=== PATIENT | female | born 1935 | race Caucasian/White ===

== ENCOUNTER 2019-03-03 08:06 | Emergency (ER) | payer MEDICARE, OTHER ==
[~2019-03-03] VITALS: Ht 152.4 cm; Wt 68.5 kg
[2019-03-03] MEDS ORDERED: KETOROLAC TROMETHAMINE INJ 30 MG/ML VIAL IV ONE (08:30)
[2019-03-03] MEDS ORDERED: IV NS 0.9% 500 ML BAG IV ONE (08:30)
[2019-03-03] MEDS ORDERED: KETOROLAC TROMETHAMINE 15 MG/ML VIAL ONE (08:33)
[2019-03-03 08:44] LABS: BASOPHILS # (AUTO) 0.1 /CMM (0.0-0.2); BASOPHILS % (AUTO) 0.8 % (0.0-2.0); HEMATOCRIT 42 % (33-45); HEMOGLOBIN 13.9 g/dL (11.5-14.8); LYMPHOCYTES # (AUTO) 1.2 /CMM (0.8-4.8); LYMPHOCYTES % (AUTO) 11.4 % (20.0-44.0); MEAN CORPUSCULAR HGB CONC 33 g/dl (31.0-36.0); MEAN CORPUSCULAR VOLUME 88 fL (82-100); MONOCYTES # (AUTO) 0.9 /CMM (0.1-1.30); MONOCYTES % (AUTO) 8.2 % (2.0-12.0); NEUTROPHILS # (AUTO) 8.1 /CMM (1.8-8.9); NEUTROPHILS % (AUTO) 78.6 % (43.0-81.0); PLATELET COUNT (AUTO) 321 /CMM (150-450); RED BLOOD CELL COUNT(AUTO) 4.75 MIL/uL (4.0-5.2); WHITE BLOOD COUNT (AUTO) 10.4 K/uL (4.3-11.0)
--- NOTE | 2019-03-03 08:48 | NUR ---
0815: BIBRA from A/L, per report, unwitnessed fall. Noted with facial and BUE multiple bruises and skin tears. 0830: Started RW PIV g20, started on 5600mL NS bolus and Ketorolac given. 0848: Went to CT.
[2019-03-03 08:53] LABS: CALCIUM, SERUM 9.1 mg/dL (8.5-10.1); CARBON DIOXIDE 29 mmol/L (21-32); CHLORIDE 106 mmol/L (98-107); CREATININE 0.5 mg/dL (0.6-1.3); GLUCOSE 106 mg/dL (74-106); LIPASE 115 U/L (73-393); POTASSIUM 3.9 mmol/L (3.5-5.1); SODIUM SERUM 143 mmol/L (136-145); UREA NITROGEN, BLOOD 15 mg/dL (7-18)
--- NOTE | 2019-03-03 09:15 | NUR ---
Back to bed [address]
[2019-03-03] MEDS ORDERED: LIDO30CR TP (09:25)
[2019-03-03] MEDS ORDERED: TRIA80OI TP (09:25)
[2019-03-03] MEDS ORDERED: GUAI5SYR PO (09:25)
[2019-03-03] MEDS ORDERED: DOCU-141 PO (09:25)
[2019-03-03] MEDS ORDERED: TRAM50TA2 PO (09:25)
[2019-03-03] MEDS ORDERED: CARB-94 PO (09:25)
[2019-03-03] MEDS ORDERED: ISOS30TA6 PO (09:25)
[2019-03-03] MEDS ORDERED: DULO60CA45 PO (09:25)
[2019-03-03] MEDS ORDERED: ACET-868 PO (09:25)
[2019-03-03] MEDS ORDERED: MELO-107 PO (09:25)
[2019-03-03] MEDS ORDERED: ATOR10TA PO (09:25)
[2019-03-03] MEDS ORDERED: QUET25TA PO (09:25)
[2019-03-03] MEDS ORDERED: QUET50TA PO (09:25)
[2019-03-03] MEDS ORDERED: POLY15DR40 EACHEYE (09:25)
[2019-03-03] MEDS ORDERED: DICL100G26 TP (09:25)
[2019-03-03] MEDS ORDERED: TEMA15CA PO (09:25)
[2019-03-03] MEDS ORDERED: ASPI-1152 PO (09:25)
[2019-03-03] MEDS ORDERED: OMEP40CA37 PO (09:25)
[2019-03-03] MEDS ORDERED: NITR0.4T48 SL (09:25)
[2019-03-03] MEDS ORDERED: MECL-102 PO (09:25)
[2019-03-03] MEDS ORDERED: MAGN400O6 PO (09:25)
[2019-03-03 09:48] LABS: APPEARANCE,URINE Cloudy (CLEAR); BILIRUBIN,URINE SMALL (NEGATIVE); BLOOD, URINE Trace-intact Ery/uL (NEGATIVE); COLOR,URINE Yellow (YELLOW); KETONES,URINE Trace (NEGATIVE); LEUKOCYTE ESTERASE ,URINE Small (NEGATIVE); NITRITE, URINE Positive (NEGATIVE); PROTEIN,URINE 30 mg/dl (NEGATIVE); UGLUCOSE Negative (NEGATIVE); UROBILINOGEN,URINE 0.2 EU/dL (0.2)
[2019-03-03 10:24] LABS: BACTERIA,URINE 3+ /HPF (None Seen); SQUAMOUS EPITHELIAL CELL,UR Few /HPF (None Seen)
--- NOTE | 2019-03-03 10:46 | NUR ---
called [facility] [phone] [facility]
--- NOTE | 2019-03-03 11:36 | NUR ---
Face sheet and ER noted with labs faxed to [facility] [phone]
--- NOTE | 2019-03-03 12:53 | NUR ---
1240: Jennifer called back [phone], given bed number room 4419-1 1250: Report given to Lakshmi [phone] ext [phone], will call [facility] for transpo at this time.
--- NOTE | 2019-03-03 13:00 | NUR ---
DO ETA AT 1400 GOING TO [facility]. TRIP# [id number]. PRIMARY RN AWARE.
[2019-03-03] MEDS ORDERED: ONDANSETRON HCL/PF 4 MG/2 ML VIAL ONE (13:01)
[2019-03-03] MEDS ORDERED: MORPHINE SULFATE INJ 2 MG/ML DISP.SYRIN ONE (13:02)
--- NOTE | 2019-03-03 14:02 | NUR ---
Called Danelle(daughter) [phone], and made aware re: the transfer. [facility] personnels came and report given. Patient with neck collar on. PIV intct.
[2019-03-03 14:05] VITALS: BP 145/85
== END 2019-03-03 14:00 | disposition short-term general hospital (02) ==
LOC: ER 08:08
DX: S12.190A Other displaced fracture of second cervical vertebra, initial encounter for closed fracture (principal); S05.12XA Contusion of eyeball and orbital tissues, left eye, initial encounter; K21.9 Gastro-esophageal reflux disease without esophagitis; G20 Parkinson's disease; F02.80 Dementia in other diseases classified elsewhere, unspecified severity, without behavioral disturbance, psychotic disturbance, mood disturbance, and anxiety; Z79.82 Long term (current) use of aspirin; W18.39XA Other fall on same level, initial encounter; Y93.89 Activity, other specified; Y92.89 Other specified places as the place of occurrence of the external cause; Y99.8 Other external cause status
CPT/HCPCS: 36415; 70450; 70486; 72125; 72170; 80048; 81001; 83690; 84484; 85025; 87077; 87086; 93005; 96374; 99291; J1885; J2270; J2405; J7040; L0172; 81000-TC

== ENCOUNTER 2020-04-10 03:36 | Inpatient (IN) | payer MEDICARE, OTHER ==
[~2020-04-10] VITALS: Ht 162.6 cm; Wt 53.1 kg
[2020-04-10] VITALS (30 sets, daily range): BP systolic 77–136; BP diastolic 43–81
[~2020-04-10 03:36] MED LIST: ACET-868 PO; ASPI-1152 PO; ATOR10TA GT; CARB-94 PO; DICL100G26 TP; DOCU-141 PO; DULO60CA45 GT; GUAI5SYR PO; ISOS30TA6 PO; LIDO30CR TP; MAGN400O6 PO; MECL-159 PO; MELO-107 PO; NITR0.4T48 SL; OMEP40CA13 PO; POLY15DR40 EACHEYE; QUET25TA PO; QUET50TA PO; TEMA15CA PO; TRAM50TA2 PO; TRIA80OI TP
--- NOTE | 2020-04-10 03:48 | NUR ---
PATIENT CAME TO ER BED 5 FROM [facility] BIB RA C/O SOB. PER [facility]S REPORT, PATIENT'S O2 SATURATION WAS 83% BECAUSE PATIENT'S OXYGEN MASK WAS ON PT'S FOREHEAD WHEN THE LAFD PLACED THE OXYGEN MASK BACK PROPERLY RESULTING IN A 95% O2. PATIENT IS AWAKE. BILATERAL UPPER EXTREMITIES ARE CONTRACTED. BREATHING EVENLY AND UNLABORED ON 15L OF NON-REBREATHER MASK. CONNECTED TO CARDIAC MACHINE.
[2020-04-10] MEDS ORDERED: PIPERACILLIN /TAZOBACTAM 3.375 G in IV D5W 50 ML IV ONE (04:00)
[2020-04-10] MEDS ORDERED: VANCOMYCIN HCL 1 GM in IV D5W 260 ML IV ONE (04:00)
[2020-04-10] MEDS ORDERED: IV NS 0.9% 500 ML BAG IV ONE (04:00)
[2020-04-10] MEDS ORDERED: PIPERACILLIN /TAZOBACTAM 3.375 G VIAL IV ONE (04:03)
--- NOTE | 2020-04-10 04:07 | NUR ---
URINE COLLECTED AND SENT TO LAB.
--- NOTE | 2020-04-10 04:17 | NUR ---
BLOOD SPECIMEN COLLECTED AND SENT TO LAB
--- NOTE | 2020-04-10 04:21 | NUR ---
ICE PACKS PLACED ON PT.
[2020-04-10 04:25] LABS: BASOPHILS # (AUTO) 0.1 /CMM (0.0-0.2); BASOPHILS % (AUTO) 0.6 % (0.0-2.0); EOSINOPHILS % (AUTO) 0.1 % (0.0-6.0); HEMATOCRIT 36 % (33-45); HEMOGLOBIN 11.4 g/dL (11.5-14.8); LYMPHOCYTES # (AUTO) 1.9 /CMM (0.8-4.8); LYMPHOCYTES % (AUTO) 9.9 % (20.0-44.0); MEAN CORPUSCULAR HGB CONC 32 g/dl (31.0-36.0); MEAN CORPUSCULAR VOLUME 89 fL (82-100); MONOCYTES # (AUTO) 1.6 /CMM (0.1-1.30); MONOCYTES % (AUTO) 8.2 % (2.0-12.0); NEUTROPHILS # (AUTO) 15.6 /CMM (1.8-8.9); NEUTROPHILS % (AUTO) 81.2 % (43.0-81.0); PLATELET COUNT (AUTO) 352 /CMM (150-450); RED BLOOD CELL COUNT(AUTO) 4.04 MIL/uL (4.0-5.2); WHITE BLOOD COUNT (AUTO) 19.2 K/uL (4.3-11.0)
--- NOTE | 2020-04-10 04:25 | NUR ---
RADIOLOGY AT BEDSIDE FOR CXR
--- NOTE | 2020-04-10 04:32 | NUR ---
COVID TEST DONE AND SENT TO LAB
[2020-04-10 04:37] LABS: CALCIUM, SERUM 9.6 mg/dL (8.5-10.1); CREATININE 0.7 mg/dL (0.6-1.3); POTASSIUM 4.5 mmol/L (3.5-5.1)
[2020-04-10 04:41] LABS: ALBUMIN 2.9 g/dL (3.4-5.0); BILIRUBIN,DIRECT 0.1 mg/dL (0.0-0.2); BILIRUBIN,TOTAL 0.3 mg/dL (0.2-1.0); TOTAL PROTEIN, SERUM 7.1 g/dL (6.4-8.2)
[2020-04-10 04:41] LABS: APPEARANCE,URINE Cloudy (CLEAR); BILIRUBIN,URINE Negative (NEGATIVE); BLOOD, URINE Trace-intact Ery/uL (NEGATIVE); COLOR,URINE Yellow (YELLOW); KETONES,URINE Negative (NEGATIVE); LEUKOCYTE ESTERASE ,URINE Moderate (NEGATIVE); NITRITE, URINE Negative (NEGATIVE); PH,URINE 5.5 (5.0-8.0); PROTEIN,URINE 30 mg/dl (NEGATIVE); UGLUCOSE Negative (NEGATIVE); UROBILINOGEN,URINE 0.2 EU/dL (0.2)
[2020-04-10] MEDS ORDERED: VANCOMYCIN 1 GM VIAL ONE (04:48)
--- NOTE | 2020-04-10 04:51 | NUR ---
DR. KENNY SPEAKING WITH DR. THOMAS
--- NOTE | 2020-04-10 04:52 | NUR ---
CALLED HOUSE SUPPERVISOR FOR FLY BED
--- NOTE | 2020-04-10 04:58 | NUR ---
BED ASSIGNMENT 258 ICU
[2020-04-10 05:13] LABS: BACTERIA,URINE Many /HPF (None Seen); WBC,URINE 51-80 /HPF (0-3)
[2020-04-10 05:14] LABS: SQUAMOUS EPITHELIAL CELL,UR Moderate /HPF (None Seen); YEAST,URINE Many /HPF (None Seen)
[2020-04-10 05:15] LABS: CALCIUM OXALATE CRYSTALS,UR Moderate /HPF (None Seen); URINE AMORPHOUS URATE Many /HPF (None Seen)
[2020-04-10] MEDS ORDERED: POTA20TA83 GT (05:20)
[2020-04-10] MEDS ORDERED: CALC-1074 GT (05:20)
[2020-04-10] MEDS ORDERED: ARGI1POW13 GT (05:20)
[2020-04-10] MEDS ORDERED: ZINC1CAP3 GT (05:20)
[2020-04-10] MEDS ORDERED: METO25TA6 GT (05:20)
[2020-04-10] MEDS ORDERED: ASCO500C18 GT (05:20)
[2020-04-10] MEDS ORDERED: FERR325T23 GT (05:20)
[2020-04-10] MEDS ORDERED: CARB-93 GT (05:20)
[2020-04-10] MEDS ORDERED: MULT-447 GT (05:20)
--- NOTE | 2020-04-10 05:24 | NUR ---
RECTAL TEMP RECHECKED. 101.4. ICE PACKS PLACED.
--- NOTE | 2020-04-10 05:49 | NUR ---
REPORT GIVEN TO VEE KINCAID FOR YUSUF
--- NOTE | 2020-04-10 05:59 | NUR ---
RT AT BEDSIDE FOR ABG
[2020-04-10 06:18] LABS: ABG BASE EXCESS 2.9 mmol/L; ABG OXYGEN SATURATION 98.1 % (92.0-98.5); ABG PCO2 53.2 mmHg (35.0-45.0); ABG PH 7.359 (7.350-7.450); ABG PO2 123.5 mmHg (75.0-100.0); AaDO2 536.3 mmHg; COHb 0.3 % (0.5-1.5); MetHb 0.1 % (0.0-1.5); O2Hb 97.7 % (94.0-97.0); SITE, ABG Right Brachial; VENT MODE, BG NONREBREATHER 100%
--- NOTE | 2020-04-10 06:26 | NUR ---
DR THOMAS AT THE BED SIDE
[2020-04-10] MEDS ORDERED: IPRATROPIUM NEB FS 0.5 MG/2.5 ML AMPUL.NEB NEB PRN (06:30)
[2020-04-10] MEDS ORDERED: ALBUTEROL FS 2.5 MG/3 ML VIAL.NEB NEB PRN (06:30)
[2020-04-10] MEDS ORDERED: ONDANSETRON HCL/PF 4 MG/2 ML VIAL IV PRN (06:30)
--- NOTE | 2020-04-10 06:40 | NUR ---
RN/ICU-ADMITTED THIS 84 Y/O FEMALE FROM ER PER ACLS PROTOCOL. NURSING FOCUS: ALTERED RESPIRATORY STATUS R/T DIAGNOSIS:PNEUMONIA, UTI. ROUTINE ICU ADMISSION CARE INITIATED.PT. AWAKE, NON-INTERACTIVE., BREATHING IS SHALLOW, W/ O2 SUPPORT OF NRB. SATS.-91%. EKG ST. W/ HR-105. SBP--98/65. NOT IN ANY DISTRESS OR PAIN. PT. IS A FULL CODE FOR NOW. DR. THOMAS HERE TO SEE PT. PT. WITH MULTI SKIN ISSUES. WILL NOTIFY LOCK EXPERT..
--- NOTE | 2020-04-10 06:45 | NUR ---
PT TRASNSFERED PER ACLS PROTOCOL
[2020-04-10] MEDS ORDERED: LORAZEPAM INJ 2 MG/ML VIAL IV PRN (07:00)
--- NOTE | 2020-04-10 07:00 | NUR ---
RN/ICU- PT. ON SPECIAL CONTACT AND DROPLET PRECAUTIONS FOR NOW, R/O COVID 19. REPORT GIVEN TO VEE LAM.
[2020-04-10] MEDS: IV NS 0.9% 1,000 ML IV PRN ×2 (07:02→20:56)
[2020-04-10] MEDS ORDERED: FEE PK DOSING 1 MIN EA MC ONE (07:12)
--- NOTE | 2020-04-10 07:20 | NUR ---
RN/ICU- PER MD DR. THOMAS PT. IS NOT A COVID PT. W/ DIAGNOSIS OF PNEUMONIA, UTI.WILL KEEP PT. ON ISOLATION FOR NOW UNTIL COVID TEST IS RESULTED.
[2020-04-10] MEDS: ALBUTEROL FS 2.5 MG/3 ML VIAL.NEB NEB SCH ×4 (07:35→19:30)
[2020-04-10] MEDS: ACETYLCYSTEINE 10% SOLN 400 MG/4 ML VIAL NEB SCH ×3 (07:35→19:30)
[2020-04-10] MEDS: IPRATROPIUM NEB FS 0.5 MG/2.5 ML AMPUL.NEB NEB SCH ×5 (07:35→23:30)
[2020-04-10] MEDS: ACETAMINOPHEN 650 MG/20.3 ML UDC NG PRN (07:58)
[2020-04-10] MEDS: CALCIUM CARB 600MG /VIT D 1 EACH TABLET GT SCH ×2 (07:59→08:00)
--- NOTE | 2020-04-10 08:04 | NUR ---
WOUND CARE CONSULT: REVIEWED CHART, NURSING DOCUMENTATION AND PHOTOS WHICH SHOW MULTIPLE AREAS OF BRUISING/SKIN DISCOLORATION AND FULL THICKNESS ULCER TO SACRUM WHICH EXTENDS TO BILATERAL BUTTOCKS, PRESENT ON ADMISSION. PER SENDING FACILITY STAGE 3 WOUNDS TO SACRUM AND BUTTOCK. RECOMMEND SURGICAL CONSULT. SPOKE WITH DR THOMAS REGARDING SURGICAL CONSULT. DR HAMILTON NOTIFIED OF CONSULT REQUEST. FIRST STEP LOW AIRLOSS MATTRESS ON ORDER. RECOMMENDATIONS MADE FOR SKIN PROTECTION. DISCUSSED WITH NURSING STAFF. WILL SEE PRN. MELVIN IN AGREEMENT WITH PLAN OF CARE.
[2020-04-10] MEDS: ASCORBIC ACID 500 MG TABLET GT SCH (08:09)
[2020-04-10] MEDS: FERROUS SULFATE (325 MG) 325 MG/TAB TABLET GT SCH (08:09)
[2020-04-10] MEDS: ATORVASTATIN 10 MG TABLET GT SCH (08:09)
[2020-04-10] MEDS: CARBIDOPA/LEVODOPA 25/100 MG 1 UDTAB GT SCH ×3 (08:09→17:38)
[2020-04-10] MEDS: DULOXETINE HCL 30 MG CAPSULE.DR GT SCH ×2 (08:11→17:39)
[2020-04-10] MEDS: METOPROLOL TARTRATE 25 MG TABLET GT SCH ×2 (09:00→17:38)
[2020-04-10] MEDS ORDERED: Medication Not On Formulary EA (Arginine/Ascorbate Sod/Vite AC (Arginaid Powder) 1 EACH) GT SCH (09:00)
--- NOTE | 2020-04-10 11:27 | NUR ---
HHN HELD AT THIS TIME DUE TO DESATURATION ON NON REBREATHER MASK. NASAL TRACHEAL SUCTION PERFORMED WITH SMALL AMOUNTS OF P/Y SPUTUM. PT HAS ZERO COUGH EFFORT.
[2020-04-10] MEDS: Z GUARD REMEDY 2 OZ OINT TP SCH (12:20)
[2020-04-10] MEDS: ZINC SULFATE 220 MG CAPSULE GT SCH (12:20)
[2020-04-10] MEDS: ASPIRIN EC 81 MG TABLET.DR PO SCH (12:20)
[2020-04-10] MEDS: PANTOPRAZOLE 40 MG/PACK PACK GT SCH (12:20)
[2020-04-10] MEDS: MEROPENEM 1 G in IV NS 0.9% 100 ML IV SCH ×2 (12:45→20:59)
[2020-04-10] MEDS: DAKINS QUARTER STRENGTH (0.125%) 480 ML BOTTLE TOP SCH (14:00)
--- NOTE | 2020-04-10 18:29 | NUR ---
ICU/RN: Pt was received awake but aphasic. Moans and grimacing with pain when positioning or when given care. Remain on non-rebreather mask at 10LPM, O2 sat >96%. Moderate amount of oropharyngeal secretions noted. NSR/SB on tele. PEG is patent and intact, remains NPO except meds. Left UA midline started, is patent and intact. First step mattress given to pt as recommended by power plant operators supervisor. Flowtron on bilat LE applied on patient. Sacral dressing was intact, bilat. heels off-loaded all day today. Spoke to Danelle (daughter) and gave consent for the serial debridement of sacral and buttocks and was updated with the patient's condition.
--- NOTE | 2020-04-10 21:55 | NUR ---
SPLICING SUPERVISOR: ENDORSED PT TO VEE MARTINEZ FOR CONTINUITY OF CARE. NO SIGNIFICANT YUSUF. STILL ON 15 02 VIA NRM.
[2020-04-10] MEDS ORDERED: VANCOMYCIN 1 GM in IV D5W 250 ML IV SCH (23:00)
[2020-04-11] VITALS (36 sets, daily range): BP systolic 79–134; BP diastolic 43–95
[2020-04-11] MEDS: ACETYLCYSTEINE 10% SOLN 400 MG/4 ML VIAL NEB SCH ×4 (01:30→19:57)
--- NOTE | 2020-04-11 01:30 | NUR ---
RN NOTE TEMP 100.3. TYLENOL SUPPOSITORY GIVEN, AND COOLING MEASURES APPLIED. WILL CONT. TO MONITOR PT
[2020-04-11] MEDS: ACETAMINOPHEN 650 MG/SUPP.RECT RC PRN ×2 (01:46→08:33)
[2020-04-11] MEDS: IPRATROPIUM NEB FS 0.5 MG/2.5 ML AMPUL.NEB NEB SCH ×5 (03:30→19:57)
[2020-04-11 04:26] LABS: BASOPHILS % (AUTO) 0.2 % (0.0-2.0); HEMATOCRIT 31 % (33-45); HEMOGLOBIN 10.1 g/dL (11.5-14.8); LYMPHOCYTES # (AUTO) 2.3 /CMM (0.8-4.8); LYMPHOCYTES % (AUTO) 11.3 % (20.0-44.0); MEAN CORPUSCULAR HGB CONC 32 g/dl (31.0-36.0); MEAN CORPUSCULAR VOLUME 88 fL (82-100); MONOCYTES # (AUTO) 1.6 /CMM (0.1-1.30); MONOCYTES % (AUTO) 7.5 % (2.0-12.0); NEUTROPHILS # (AUTO) 16.8 /CMM (1.8-8.9); PLATELET COUNT (AUTO) 270 /CMM (150-450); RED BLOOD CELL COUNT(AUTO) 3.57 MIL/uL (4.0-5.2); WHITE BLOOD COUNT (AUTO) 20.7 K/uL (4.3-11.0)
[2020-04-11 05:02] LABS: ALBUMIN 2.4 g/dL (3.4-5.0); BILIRUBIN,TOTAL 0.6 mg/dL (0.2-1.0); CALCIUM, SERUM 8.8 mg/dL (8.5-10.1); CREATININE 0.7 mg/dL (0.6-1.3); PHOSPHORUS 2.3 mg/dL (2.5-4.9); POTASSIUM 3.9 mmol/L (3.5-5.1); TOTAL PROTEIN, SERUM 6.3 g/dL (6.4-8.2)
--- NOTE | 2020-04-11 06:49 | NUR ---
PROSPECTING OBSERVER CLOSING NOTE Pt awake with hob in semi-fowlers position. Patient remains on non-rebreather mask at 15 LPM, O2 sat >96%. Moderate amount of oropharyngeal secretions noted. SR/St on monitor throughout the shift pt remained afebrile after tylenol was given. NS infusing at 75 ml/hr, JANAK midline patent, intact and flushing well, PEG is patent and intact. PT remains NPO except meds. vickers cath draining yellow urine. Safety measures in place, side rails up x 2. Endorsed to am RN for donal.
[2020-04-11] MEDS: ALBUTEROL FS 2.5 MG/3 ML VIAL.NEB NEB SCH ×4 (07:58→19:57)
[2020-04-11] MEDS: FERROUS SULFATE (325 MG) 325 MG/TAB TABLET GT SCH (08:33)
[2020-04-11] MEDS: ASPIRIN EC 81 MG TABLET.DR PO SCH (08:33)
[2020-04-11] MEDS: PANTOPRAZOLE 40 MG/PACK PACK GT SCH (08:33)
[2020-04-11] MEDS: MEROPENEM 1 G in IV NS 0.9% 100 ML IV SCH ×2 (08:33→21:51)
[2020-04-11] MEDS: DULOXETINE HCL 30 MG CAPSULE.DR GT SCH ×2 (08:34→16:37)
[2020-04-11] MEDS: ASCORBIC ACID 500 MG TABLET GT SCH (08:34)
[2020-04-11] MEDS: ATORVASTATIN 10 MG TABLET GT SCH (08:34)
[2020-04-11] MEDS: METOPROLOL TARTRATE 25 MG TABLET GT SCH ×2 (08:34→16:38)
[2020-04-11] MEDS: CALCIUM CARB 600MG /VIT D 1 EACH TABLET GT SCH (09:02)
[2020-04-11] MEDS: Z GUARD REMEDY 2 OZ OINT TP PRN (09:03)
[2020-04-11] MEDS: Z GUARD REMEDY 2 OZ OINT TP SCH (09:04)
[2020-04-11] MEDS: DAKINS QUARTER STRENGTH (0.125%) 480 ML BOTTLE TOP SCH (09:05)
[2020-04-11] MEDS: ZINC SULFATE 220 MG CAPSULE GT SCH (09:25)
[2020-04-11] MEDS: CARBIDOPA/LEVODOPA 25/100 MG 1 UDTAB GT SCH ×3 (09:26→16:38)
[2020-04-11] MEDS ORDERED: ENOXAPARIN SODIUM 30 MG/0.3 ML DISP.SYRIN SQ SCH ×3 (12:16→13:00)
[2020-04-11] MEDS: ENOXAPARIN SODIUM 60 MG/0.6 ML DISP.SYRIN SQ SCH (12:28)
[2020-04-11] MEDS: IV NS 0.9% 1,000 ML IV PRN (15:21)
[2020-04-11] MEDS: OSMOLITE 1.2 CAL 1,000 ML LIQUID GT PRN (15:22)
[2020-04-11] MEDS: ACETAMINOPHEN 650 MG/20.3 ML UDC NG PRN ×2 (16:55→23:24)
--- NOTE | 2020-04-11 18:53 | NUR ---
ICU: PT WAS RECEIVED ON NON-REBREATHER MASK AT 15LPM, WAS SWITHCHED TO REGULAR MASK AT 10 LPM TOLERATING WELL WITH O2 SAT >96 % DR ROJO PLANS ON PERFOMING A BRONCHOSCOPY AND POSSIBLE INTUBATION FRANSISCO DEPENDING ON THE CXR IN AM< FAMILY IS AWARE AND GAVE CONSENT pt is tolerating TF AT Addendum: 04/11/20 at 1900 by CANELO LAM RN uneventful day> will give report to right of way supervisor
--- NOTE | 2020-04-11 19:20 | NUR ---
RN OPENING NOTE: PATIENT IN BED, ASLEEP, BUT RESPONSIVE WITH EYES OPENING SPONTANEOUSLY. NO RESPIRATORY DISTRESS. ON SIMPLE MASK AT 10 LPM. TOLERATING WELL. SPO2 >95%. SAFETY PRECAUTIONS IMPLEMENTED. BED LOCKED, LOW POSITION, HOB ELEVATED. SIDE RAILS X2 UP. WILL CONT. TO MONITOR FOR CHANGES.
[2020-04-11] MEDS: VANCOMYCIN 1 GM in IV D5W 250 ML IV SCH (20:22)
[2020-04-12] VITALS (33 sets, daily range): BP systolic 65–157; BP diastolic 32–91
[2020-04-12] MEDS: IPRATROPIUM NEB FS 0.5 MG/2.5 ML AMPUL.NEB NEB SCH ×7 (00:13→23:42)
[2020-04-12] MEDS: ENOXAPARIN SODIUM 60 MG/0.6 ML DISP.SYRIN SQ SCH (00:18)
--- NOTE | 2020-04-12 00:47 | NUR ---
RN NOTE: PATIENT MIGHT UNDERGO BRONCHOSCOPY PROCEDURE LATER IN AM AND MAY BE INTUBATED. IZZY QUINONEZ CHARGE NURSE MADE AWARE. Addendum: 04/12/20 at 0726 by ROLA MONIQUE RN PLACED ON NPO AFTER MIDNIGHT FOR BRONCHOSCOPY PROCEDURE IN AM.
[2020-04-12] MEDS: ACETYLCYSTEINE 10% SOLN 400 MG/4 ML VIAL NEB SCH ×4 (01:38→19:36)
[2020-04-12] MEDS: IV NS 0.9% 1,000 ML IV PRN ×2 (03:52→13:38)
[2020-04-12 05:10] LABS: BILIRUBIN,TOTAL 0.4 mg/dL (0.2-1.0); CALCIUM, SERUM 8.6 mg/dL (8.5-10.1); CREATININE 0.6 mg/dL (0.6-1.3); MAGNESIUM 2.3 mg/dL (1.8-2.4); PHOSPHORUS 2.4 mg/dL (2.5-4.9); POTASSIUM 4.1 mmol/L (3.5-5.1); TOTAL PROTEIN, SERUM 5.6 g/dL (6.4-8.2)
[2020-04-12 05:25] LABS: BASOPHILS % (AUTO) 0.1 % (0.0-2.0); EOSINOPHILS % (AUTO) 0.1 % (0.0-6.0); HEMATOCRIT 31 % (33-45); HEMOGLOBIN 9.8 g/dL (11.5-14.8); LYMPHOCYTES # (AUTO) 2.1 /CMM (0.8-4.8); LYMPHOCYTES % (AUTO) 12.2 % (20.0-44.0); MEAN CORPUSCULAR HGB CONC 32 g/dl (31.0-36.0); MEAN CORPUSCULAR VOLUME 88 fL (82-100); MONOCYTES # (AUTO) 1.3 /CMM (0.1-1.30); MONOCYTES % (AUTO) 7.5 % (2.0-12.0); NEUTROPHILS # (AUTO) 13.9 /CMM (1.8-8.9); NEUTROPHILS % (AUTO) 80.1 % (43.0-81.0); PLATELET COUNT (AUTO) 258 /CMM (150-450); RED BLOOD CELL COUNT(AUTO) 3.51 MIL/uL (4.0-5.2); WHITE BLOOD COUNT (AUTO) 17.4 K/uL (4.3-11.0)
--- NOTE | 2020-04-12 07:42 | NUR ---
RN CLOSING NOTES: ENDORSED TO AM RN FOR CONTINUITY OF CARE. PATIENT IN STABLE CONDITION DURING SHIFT. Addendum: 04/12/20 at 0747 by ROLA MONIQUE RN TURNED AND REPOSITIONED Q2H FOR SKIN MANAGEMENT.
[2020-04-12] MEDS: ALBUTEROL FS 2.5 MG/3 ML VIAL.NEB NEB SCH ×4 (07:44→19:36)
[2020-04-12] MEDS: ACETAMINOPHEN 650 MG/20.3 ML UDC NG PRN (08:19)
[2020-04-12] MEDS: PANTOPRAZOLE 40 MG/PACK PACK GT SCH (08:19)
[2020-04-12] MEDS: ZINC SULFATE 220 MG CAPSULE GT SCH (08:20)
[2020-04-12] MEDS: ATORVASTATIN 10 MG TABLET GT SCH (08:20)
[2020-04-12] MEDS: DULOXETINE HCL 30 MG CAPSULE.DR GT SCH ×2 (08:20→16:59)
[2020-04-12] MEDS: ASPIRIN EC 81 MG TABLET.DR PO SCH (08:20)
[2020-04-12] MEDS: ASCORBIC ACID 500 MG TABLET GT SCH (08:20)
[2020-04-12] MEDS: METOPROLOL TARTRATE 25 MG TABLET GT SCH ×2 (08:21→17:00)
[2020-04-12] MEDS: FERROUS SULFATE (325 MG) 325 MG/TAB TABLET GT SCH (08:21)
[2020-04-12] MEDS: CALCIUM CARB 600MG /VIT D 1 EACH TABLET GT SCH (09:04)
[2020-04-12] MEDS: VANCOMYCIN 1 GM in IV D5W 250 ML IV SCH ×2 (09:04→21:03)
[2020-04-12] MEDS: CARBIDOPA/LEVODOPA 25/100 MG 1 UDTAB GT SCH ×3 (09:05→16:59)
[2020-04-12] MEDS: MEROPENEM 1 G in IV NS 0.9% 100 ML IV SCH ×2 (09:05→22:01)
[2020-04-12] MEDS: Z GUARD REMEDY 2 OZ OINT TP SCH (09:06)
[2020-04-12] MEDS: DAKINS QUARTER STRENGTH (0.125%) 480 ML BOTTLE TOP SCH (09:06)
[2020-04-12] MEDS ORDERED: MORPHINE SULFATE INJ 2 MG/ML DISP.SYRIN IV PRN (10:00)
[2020-04-12] MEDS ORDERED: IV NS 0.9% 500 ML IV ONE (12:00)
[2020-04-12] MEDS: METRONIDAZOLE 500MG/ NS 100ML 500 MG in PREMIX 1 EA IV SCH ×2 (12:02→17:07)
--- NOTE | 2020-04-12 16:30 | NUR ---
TRANSFER FROM ICU PT BROUGHT IN TO THE MS/TELE FLOOR BY ICU NURSE. PT ON 10L OF O2 VIA SIMPLE MASK. SATURATING AT 99%. PT IS A MOUTH BREATHER WITH RR OF 21. PT IS AOX0, NON VERBAL. AT TIMES MOANS WHEN BEING MOVED. PT WAS HOOKED UP ON A CARDIAC TELE MONITOR SHOWING SINUS RYTHYM WITH PVCS. PER ICU NURSE, PT WILL BE DNR/DNI. VISITATION IS ALLOWED FROM FAMILY FOR 10 MINUTES. IV ACCESS NOTED ON L UPPER ARM MIDLINE. INTACT AND PATENT AND FLUSHING WELL. WITH NS RUNNING AT 75ML/HR, PER ICU NURSE, BRONCOSCOPY WAS NOT DONE YESTERDAY , PER PULMONOLOGY PTS CXRAY SEEMS TO BE BETTER. GTUBE SITE INTACT AND PATENT AND FLUSHING WELL. WITH OSMOLITE RUNNING AT 50ML/HR. NO GASTRIC RESIDUALS NOTED. SAFETY PRECAUTIONS IN PLACE. BED LOCKED AND IN LOW POSITION SIDE RAILS UP X2. BED ALARM ON. CALL LIGHT WITHIN REACH. VS NOTE FOLLOWS: T-98.6M, P-79, RR- 21, BP-92/53, O2 SAT- 99% ON 10L.
--- NOTE | 2020-04-12 16:52 | NUR ---
ICU/RN: Pt was received on 10L via mask, saturating >96%. Had a lot of artifacts on tele due to tremors from Parkinson's. Dr. Moore suggested Ativan 0.5mg IVP, which was given but the BP dropped to [id number]'s, NS bolus 500cc given, BP went up to SBP 90's. Osmolite at 50 cc/he tolerating well. Wound care, bed bath and frequent oral care were given. Small amount of bleeding noted from deep oropharyngeal suctioning, Dr. Moore changed to Lovenox to Eloquis also due to bilat LE superficial clots. Daughter and came in to visit the pt and was deciding if pt will be on comfort measures. Gave report to Latanya BAXTER, transferred to tele floor as ordered.
[2020-04-12] MEDS: APIXABAN 2.5 MG TABLET PO SCH (16:59)
--- NOTE | 2020-04-12 17:00 | NUR ---
SUCTIONED PT NOTED TO BE CONGESTED, SUCTIONED PT O2 SAT AT 99% CURRENTLY.
[2020-04-12] MEDS ORDERED: NA P133E RC (18:47)
[2020-04-12] MEDS ORDERED: ACET-868 GT (18:47)
[2020-04-12] MEDS ORDERED: NUT.237L30 GT (18:47)
[2020-04-12] MEDS ORDERED: ONDA4TAB5 GT (18:47)
[2020-04-12] MEDS ORDERED: BISA10SU11 RC (18:47)
[2020-04-12] MEDS ORDERED: PANT40SU2 GT (18:47)
[2020-04-12] MEDS ORDERED: IPRA3AMP23 IH (18:47)
[2020-04-12] MEDS ORDERED: ASPI-1169 GT (18:47)
[2020-04-12] MEDS ORDERED: DOCU-141 GT (18:47)
[2020-04-12] MEDS ORDERED: MAGN400O6 GT (18:47)
--- NOTE | 2020-04-12 19:05 | NUR ---
ABSORPTION OPERATOR NOTES RECEIVED PT IN BED RESTING. PT RESPONSIVE TO TOUCH, AND LIGHT PAIN. RESPIRATIONS EVEN AND UNLABORED WITH NO S/S OF ACUTE DISTRESS OR SOB NOTED. PT NOTED ON SIMPLE FACE MASK @10L O2, TOLERATING WELL. PT WITH NO S/S OF PAIN AT THIS TIME. PT NOTED WITH JANAK MIDLINE INFUSING NS @75CC/HR. PT NOTED WITH GTUBE INFUSING OSMOLITE @50CC/HR, TOLERATING WELL. PT NOTED WITH FC DRAINING WELL. SAFETY MEASURES IN PLACE WITH BED IN LOWEST LOCKED POSITION WITH SIDE RAILS UP X2. CALL LIGHT WITHIN REACH. WILL CONTINUE TO MONITOR.
--- NOTE | 2020-04-12 22:30 | NUR ---
DIRECTOR INFORMATICS NOTES PT NOTED DESAT, RESPIRATORY INFORMED, PT SUCTION. PT PUT ON NON REBREATHER. WILL CONTINUE TO MONITOR.
[2020-04-13] VITALS: BP 132/75
[2020-04-13] MEDS: METRONIDAZOLE 500MG/ NS 100ML 500 MG in PREMIX 1 EA IV SCH ×3 (01:06→17:49)
[2020-04-13] MEDS: ACETYLCYSTEINE 10% SOLN 400 MG/4 ML VIAL NEB SCH ×4 (01:53→20:14)
--- NOTE | 2020-04-13 02:30 | NUR ---
DOCK HAND NOTES ATTEMPTED TO SWITCH PT FROM NON REBREATHER TO SIMPLE FACE MASK, PT CONTINUED TO DESATURATE BELOW 91%. NON REBREATHER PUT BACK ON. WILL CONTINUE TO MONITOR.
[2020-04-13] MEDS: IPRATROPIUM NEB FS 0.5 MG/2.5 ML AMPUL.NEB NEB SCH ×6 (03:34→23:51)
[2020-04-13] MEDS: IV NS 0.9% 1,000 ML IV PRN (03:38)
[2020-04-13] MEDS: OSMOLITE 1.2 CAL 1,000 ML LIQUID GT PRN (03:38)
[2020-04-13 04:00] VITALS: BP 130/88
[2020-04-13] MEDS: ACETAMINOPHEN 650 MG/20.3 ML UDC NG PRN (04:15)
--- NOTE | 2020-04-13 05:10 | NUR ---
KEY PUNCH OPERATOR NOTES ATTEMPTED TO SWITCH PT FROM NON REBREATHER TO SIMPLE FACE MASK, PT CONTINUED TO DESATURATE BELOW 91%. NON REBREATHER PUT BACK ON. WILL CONTINUE TO MONITOR.
--- NOTE | 2020-04-13 07:07 | NUR ---
BARK SPUDDER NOTES PT IN BED RESTING. PT RESPONSIVE TO TOUCH, AND LIGHT PAIN. RESPIRATIONS EVEN AND UNLABORED WITH NO S/S OF ACUTE DISTRESS OR SOB NOTED AT THIS TIME. PT NOTED ON NON REBREATHER MASK @15L O2, TOLERATING WELL. PT WITH NO S/S OF PAIN AT THIS TIME. PT NOTED WITH JANAK MIDLINE INFUSING NS @75CC/HR. PT NOTED WITH GTUBE INFUSING OSMOLITE @50CC/HR, TOLERATING WELL. PT NOTED WITH FC DRAINING WELL. PT KEPT CLEAN, DRY, AND COMFORTABLE. SAFETY MEASURES IN PLACE WITH BED IN LOWEST LOCKED POSITION WITH SIDE RAILS UP X2. CALL LIGHT WITHIN REACH. WILL ENDORSE TO ONCOMING NURSE FOR YUSUF.
[2020-04-13 07:11] LABS: BASOPHILS % (AUTO) 0.2 % (0.0-2.0); HEMATOCRIT 31 % (33-45); HEMOGLOBIN 9.4 g/dL (11.5-14.8); LYMPHOCYTES # (AUTO) 1.6 /CMM (0.8-4.8); LYMPHOCYTES % (AUTO) 12.3 % (20.0-44.0); MEAN CORPUSCULAR HGB CONC 31 g/dl (31.0-36.0); MEAN CORPUSCULAR VOLUME 91 fL (82-100); NEUTROPHILS % (AUTO) 78.5 % (43.0-81.0); PLATELET COUNT (AUTO) 243 /CMM (150-450); RED BLOOD CELL COUNT(AUTO) 3.38 MIL/uL (4.0-5.2); WHITE BLOOD COUNT (AUTO) 12.8 K/uL (4.3-11.0)
[2020-04-13 07:18] LABS: CALCIUM, SERUM 8.4 mg/dL (8.5-10.1); CARBON DIOXIDE 28 mmol/L (21-32); CHLORIDE 113 mmol/L (98-107); CREATININE 0.5 mg/dL (0.6-1.3); GLUCOSE 145 mg/dL (74-106); POTASSIUM 3.5 mmol/L (3.5-5.1); SODIUM SERUM 147 mmol/L (136-145); UREA NITROGEN, BLOOD 20 mg/dL (7-18)
[2020-04-13] MEDS: ALBUTEROL FS 2.5 MG/3 ML VIAL.NEB NEB SCH ×4 (07:41→20:14)
[2020-04-13 08:00] VITALS: BP 137/80
[2020-04-13] MEDS: VANCOMYCIN 1 GM in IV D5W 250 ML IV SCH (08:31)
[2020-04-13] MEDS: ASCORBIC ACID 500 MG TABLET GT SCH (08:32)
[2020-04-13] MEDS: CARBIDOPA/LEVODOPA 25/100 MG 1 UDTAB GT SCH ×3 (08:32→17:14)
[2020-04-13] MEDS: ASPIRIN EC 81 MG TABLET.DR PO SCH (08:32)
[2020-04-13] MEDS: CALCIUM CARB 600MG /VIT D 1 EACH TABLET GT SCH (08:32)
[2020-04-13] MEDS: DULOXETINE HCL 30 MG CAPSULE.DR GT SCH ×2 (08:32→17:14)
[2020-04-13] MEDS: ZINC SULFATE 220 MG CAPSULE GT SCH (08:32)
[2020-04-13] MEDS: ATORVASTATIN 10 MG TABLET GT SCH (08:32)
[2020-04-13] MEDS: PANTOPRAZOLE 40 MG/PACK PACK GT SCH (08:32)
[2020-04-13] MEDS: FERROUS SULFATE (325 MG) 325 MG/TAB TABLET GT SCH (08:32)
[2020-04-13] MEDS: METOPROLOL TARTRATE 25 MG TABLET GT SCH ×2 (08:33→17:00)
[2020-04-13] MEDS: APIXABAN 2.5 MG TABLET PO SCH ×2 (08:34→17:00)
[2020-04-13] MEDS: Z GUARD REMEDY 2 OZ OINT TP SCH (08:35)
[2020-04-13] MEDS: Z GUARD REMEDY 2 OZ OINT TP PRN (08:35)
[2020-04-13] MEDS: DAKINS QUARTER STRENGTH (0.125%) 480 ML BOTTLE TOP SCH (08:35)
[2020-04-13] MEDS: MEROPENEM 1 G in IV NS 0.9% 100 ML IV SCH ×2 (09:29→20:07)
[2020-04-13 10:00] VITALS: BP 145/97
[2020-04-13 16:00] VITALS: BP 109/79
--- NOTE | 2020-04-13 19:40 | NUR ---
MS RN OPEN NOTES PATIENT IS LAYING IN BED. NONVERBAL. ON NON REBREATHER MASK, TOLERATING WELL. SHOWS NO SIGNS OF PAIN/ DISCOMFORT AT THIS TIME. BED IS IN LOWEST LOCKED POSITION WITH SIDE RAILS UP, SEMI FOWLERS. CALL LIGHT IS WITHIN REACH. WILL CONTINUE TO MONITOR.
[2020-04-13 20:00] VITALS: BP 132/80
[2020-04-14] MEDS: ACETYLCYSTEINE 10% SOLN 400 MG/4 ML VIAL NEB SCH ×4 (01:30→19:52)
[2020-04-14] MEDS: METRONIDAZOLE 500MG/ NS 100ML 500 MG in PREMIX 1 EA IV SCH ×3 (01:39→18:26)
[2020-04-14] MEDS: VANCOMYCIN 1 GM in IV D5W 250 ML IV SCH ×2 (02:08→19:46)
[2020-04-14] MEDS: IPRATROPIUM NEB FS 0.5 MG/2.5 ML AMPUL.NEB NEB SCH ×5 (03:28→19:52)
[2020-04-14] MEDS: ACETAMINOPHEN 650 MG/20.3 ML UDC NG PRN ×2 (04:49→20:27)
[2020-04-14 06:17] LABS: BASOPHILS % (AUTO) 0.2 % (0.0-2.0); EOSINOPHILS % (AUTO) 1.4 % (0.0-6.0); HEMATOCRIT 29 % (33-45); HEMOGLOBIN 8.9 g/dL (11.5-14.8); LYMPHOCYTES # (AUTO) 1.3 /CMM (0.8-4.8); LYMPHOCYTES % (AUTO) 11.2 % (20.0-44.0); MEAN CORPUSCULAR HGB CONC 31 g/dl (31.0-36.0); MEAN CORPUSCULAR VOLUME 89 fL (82-100); MONOCYTES # (AUTO) 1.1 /CMM (0.1-1.30); MONOCYTES % (AUTO) 9.6 % (2.0-12.0); NEUTROPHILS # (AUTO) 8.9 /CMM (1.8-8.9); NEUTROPHILS % (AUTO) 77.6 % (43.0-81.0); PLATELET COUNT (AUTO) 239 /CMM (150-450); RED BLOOD CELL COUNT(AUTO) 3.25 MIL/uL (4.0-5.2); WHITE BLOOD COUNT (AUTO) 11.5 K/uL (4.3-11.0)
[2020-04-14] MEDS: OSMOLITE 1.2 CAL 1,000 ML LIQUID GT PRN (06:20)
[2020-04-14 06:30] LABS: CALCIUM, SERUM 8.7 mg/dL (8.5-10.1); CARBON DIOXIDE 31 mmol/L (21-32); CHLORIDE 113 mmol/L (98-107); CREATININE 0.5 mg/dL (0.6-1.3); GLUCOSE 125 mg/dL (74-106); MAGNESIUM 2.2 mg/dL (1.8-2.4); SODIUM SERUM 148 mmol/L (136-145); UREA NITROGEN, BLOOD 18 mg/dL (7-18)
--- NOTE | 2020-04-14 06:41 | NUR ---
MS RN CLOSE NOTES PATIENT IS LAYING IN BED. NONVERBAL. ON NONREBREATHER MASK @15L/MIN, TOLERATING WELL. MIDLINE IN L UPPER ARM IS PATENT AND INTACT. VELASCO CATHETER IN PLACE, 350ML OUTPUT. SHOWS NO SIGNS OF PAIN/ DISTRESS. BED IS IN LOWEST LOCKED POSITION WITH SIDE RAILS UP X3, SEMI FOWLERS. CALL LIGHT IS WITHIN REACH. WILL ENDORSE TO AM NURSE
[2020-04-14] MEDS: ALBUTEROL FS 2.5 MG/3 ML VIAL.NEB NEB SCH ×4 (07:27→19:52)
--- NOTE | 2020-04-14 07:42 | NUR ---
rn notes patient received on non rebreather mask at this time, no sob noted, shows no s/s of pain at this time. Hanson Cath present and is draining. JANAK midline present and is flushing. Patient is running with GT osmolite @ 50 ml per hour for 24 hours per report. No bloody secretions noted. bed at the lowest setting, call light within reach, side rails up x2.
[2020-04-14] MEDS: ASCORBIC ACID 500 MG TABLET GT SCH (08:27)
[2020-04-14] MEDS: CALCIUM CARB 600MG /VIT D 1 EACH TABLET GT SCH (08:27)
[2020-04-14] MEDS: ATORVASTATIN 10 MG TABLET GT SCH (08:27)
[2020-04-14] MEDS: ZINC SULFATE 220 MG CAPSULE GT SCH (08:27)
[2020-04-14] MEDS: FERROUS SULFATE (325 MG) 325 MG/TAB TABLET GT SCH (08:27)
[2020-04-14] MEDS: CARBIDOPA/LEVODOPA 25/100 MG 1 UDTAB GT SCH ×3 (08:27→16:33)
[2020-04-14] MEDS: APIXABAN 2.5 MG TABLET PO SCH ×2 (08:28→16:33)
[2020-04-14] MEDS: Z GUARD REMEDY 2 OZ OINT TP SCH (08:28)
[2020-04-14] MEDS: DAKINS QUARTER STRENGTH (0.125%) 480 ML BOTTLE TOP SCH (08:28)
[2020-04-14] MEDS: PANTOPRAZOLE 40 MG/PACK PACK GT SCH (08:29)
[2020-04-14] MEDS: DULOXETINE HCL 30 MG CAPSULE.DR GT SCH ×2 (08:29→16:33)
[2020-04-14] MEDS: MEROPENEM 1 G in IV NS 0.9% 100 ML IV SCH (08:32)
[2020-04-14] MEDS: METOPROLOL TARTRATE 25 MG TABLET GT SCH ×2 (08:33→16:33)
[2020-04-14 09:24] VITALS: BP 127/72
[2020-04-14] MEDS ORDERED: LIDOCAINE 1%-EPI 1:100,000 20 ML VIAL TP ONE (09:30)
[2020-04-14] MEDS ORDERED: SILVER NITRATE APPLICATOR 1 EA BOX TP ONE (09:30)
[2020-04-14] MEDS ORDERED: MORPHINE SULFATE INJ 2 MG/ML DISP.SYRIN IV PRN (10:00)
[2020-04-14 16:01] VITALS: BP 106/60
--- NOTE | 2020-04-14 18:27 | NUR ---
rn notes patient remains on non rebreather mask at this time, no sob noted, shows no s/s of pain at this time. Hanson Cath present and is draining. JANAK midline present and is flushing. Patient is running with GT osmolite @ 50 ml per hour for 24 hours per report. No bloody secretions noted. bed at the lowest setting, call light within reach, side rails up x2.
--- NOTE | 2020-04-14 19:38 | NUR ---
MS RN OPEN NOTES PATIENT IS LAYING IN BED. NON VERBAL. ON 15L NON REBREATHER TOLERATING WELL. NO SOB/ ACUTE RESPIRATORY DISTRESS NOTED. RECEIVING GTF @50L/HR. BED IS IN LOWEST LOCKED POSITION WITH SIDE RAILS UP. CALL LIGHT IS WITHIN REACH. WILL CONTINUE TO MONITOR.
[2020-04-14 20:00] VITALS: BP 127/45
--- NOTE | 2020-04-14 20:55 | NUR ---
MS RN NOTES PATIENT'S FAMILY IS AT BEDSIDE. SPOKE WITH ZIA (DAUGHTER) REGARDING PATIENT'S STATUS AND WHETHER SHE DECIDED ON PLACING HER MOTHER ON COMFORT CARE. ZIA MENTIONED THAT SHE IS OK WITH PLACING HER ON COMFORT CARE. SHE BELIEVES THAT IS WHAT IS BEST FOR HER MOTHER CONSIDERING HER CONDITION. WILL CONTACT DR. THOMAS FOR ORDERS.
--- NOTE | 2020-04-14 21:00 | NUR ---
MS RN NOTES SPOKE WITH DR. THOMAS REGARDING PT'S DAUGHTER'S DECISION ABOUT COMFORT CARE. DR. THOMAS GAVE ORDERS IN WHICH TO PLACE HER ON COMFORT CARE, START HER ON A MORPHINE DRIP, DISCONTINUE ALL MEDS/LABS/VITALS, AND TO DISCONTINUE THE NONREBREATHER MASK AND TO PUT HER ON 2L NASAL CANULA REGARDLESS OF HER O2 SAT. ALSO GAVE ORDERS FOR MORPHINE, ATIVAN, ZOFRAN AND ATROPINE. ORDERS NOTED AND CARRIED OUT.
--- NOTE | 2020-04-14 21:15 | NUR ---
MS RN NOTES CHRISTINE(DAUGHTER) AND HER BOYFRIEND REFUSED THE 2L NASAL CANULA BECAUSE BECKY LOOKED TOO UNCOMFORTABLE. STATED THAT THEY WANTED HER BACK ON THE NONREBREATHER. PT PLACED ON 15L NONREBREATHER PER FAMILY'S REQUEST.
[2020-04-14] MEDS ORDERED: ONDANSETRON HCL/PF 4 MG/2 ML VIAL IV PRN (21:30)
[2020-04-14] MEDS ORDERED: MORPHINE SULFATE INJ 2 MG/ML DISP.SYRIN IV ONE (21:30)
--- NOTE | 2020-04-14 21:44 | NUR ---
RN NOTES: SPOKED WITH [employer]UFACTURING VICE PRESIDENT PHARMACIST//ADOLFO ([phone]), RELAYED ABOUT ORDERS FOR ATROPINE, PER PHARMACY ATROPINE 1% OPHTHALMIC SOLUTION IS THE ONE BEING USE FOR SUBLINGUAL ATROPINE ORDERS FOR SECRETIONS.
[2020-04-14] MEDS ORDERED: ATROPINE SULFATE OPHTH SOLN 15 ML BOTTLE SL PRN (22:00)
[2020-04-14] MEDS ORDERED: MORPHINE SULFATE PF DRIP 250 MG in IV D5W 240 ML IV PRN (22:00)
--- NOTE | 2020-04-14 22:00 | NUR ---
rn notes: spoked with rn sup regarding order for morphine drip for the pt
[2020-04-14] MEDS: LORAZEPAM INJ 2 MG/ML VIAL IV PRN (22:22)
--- NOTE | 2020-04-14 23:00 | NUR ---
rn notes: contacted [facility] weapons crew[facility], relayed about morphine drip order, per rn sup will be using 30ml bag, trying to edit to put order for some reason it doesnt let us change the order volume/amount to 30ml. the standing order appearing for morphine drip is morphine drip 250mg in iv 250ml d5w. per pharmacy there is no way for us to change the order using 30ml bag, as 30ml bag is for morphine degreasing wheel operator only, was told to call the infantry weapons crewmember in house phramacy so they can mix and prepare the medication for us, and accdg to [facility] pharmacist whoever mix/prepare the said medication will edit out our orders. relayed to delmis ruelas.
--- NOTE | 2020-04-14 23:40 | NUR ---
rn notes: pt to be admitted under comfort care per dr jimenez, contacted admitting [phone], per marii tire room supervisor, no need to re-admit pt, it will stay as is, only needs to be readmitted if under hospice. rn supervisor counseling and guidance jessenia made aware
[2020-04-15] MEDS ORDERED: MORPHINE SULFATE/PF 30 MG in IV NS 0.9% 27 ML, PCA TOTAL VOLUME 1 BAG IV PRN ×3 (00:30)
[2020-04-15] MEDS ORDERED: MORPHINE SULFATE INJ 4 MG/ML DISP.SYRIN ONE (01:09)
[2020-04-15] MEDS ORDERED: KEY,NONCONTROL,TO KEEP IN PYXI 1 EA MC ONE ×4 (01:56→23:00)
--- NOTE | 2020-04-15 02:33 | NUR ---
rn notes/morphine drip infusion: Morphine drip 30mg/ml ordered by md, to start infusion at 2mg/hr equivalent to 2ml/hr x1hr, increase by 2mg prn max is 20mg/hr. Medication cosigned/verified with another rn, aleja. Pt on continuous pulse oximetry, on nrb mask 15l/min. 5 medication rights of the patient verified. Family is still at bedside. Per md's orders, all previous medications have been discontinued. Emotional support provided to family.
[2020-04-15] MEDS: LORAZEPAM INJ 2 MG/ML VIAL IV PRN (05:36)
--- NOTE | 2020-04-15 06:20 | NUR ---
COMFORT MEASURES RN NOTES PATIENT'S MORPHINE DRIP IS INCREASED TO 4ML/HR. FAMILY IS STILL AT BEDSIDE. WILL CONTINUE TO MONITOR.
--- NOTE | 2020-04-15 06:38 | NUR ---
COMFORT CARE RN CLOSE NOTES PATIENT IS LAYING IN BED. ON COMFORT MEASURES. ON 15L NONREBREATHER MASK, TOLERATING WELL. MIDLINE IN L UPPER ARM IS PATENT AND INTACT RUNNING MORPHINE DRIP @ 4MG/HR. VELASCO CATHETER IN PLACE, 800 ML OUTPUT. FAMILY IS AT BEDSIDE. BED IS IN LOWEST LOCKED POSITION WITH SIDE RAILS UP, HIGH FOWLERS. CALL LIGHT IS WITHIN REACH. WILL ENDORSE TO AM NURSE.
--- NOTE | 2020-04-15 07:30 | NUR ---
MS/RN - Assessment Patient is non-communicative, DNR/DNI, comfort measures only, on non-rebreather oxygen saturating 98-99%, afebrile, currently on Morphine drip at 4mg/hr infusing well on the JANAK midline, Hanson catheter in place draining wilbur colored urine. Patient appears comfortable at this time. Family at bedside updated on plan of care. Will continue to monitor closely.
[2020-04-15] MEDS ORDERED: LORAZEPAM INJ 2 MG/ML VIAL IV PRN (10:00)
[2020-04-15] MEDS: POLYVINYL ALCOHOL 15 ML BOTTLE EACHEYE SCH ×4 (10:51→20:53)
--- NOTE | 2020-04-15 12:00 | NUR ---
MS/RN - Notes Patient in no acute distress, comfortable on NRB at 15 lpm, Morphine drip at 6 mg/hr infusing well on the JANAK midline. Will continue to monitor closely.
[2020-04-15] MEDS: LORAZEPAM INJ 2 MG/ML VIAL IV SCH ×2 (12:15→20:53)
--- NOTE | 2020-04-15 15:00 | NUR ---
MS/RN - Notes Family refused patient to be placed on oxygen via NC, stated she looks comfortable on the non-rebreather mask.
[2020-04-15 16:00] VITALS: BP 153/89
--- NOTE | 2020-04-15 17:10 | NUR ---
MS/RN - Morphine drip Patient appears to be in pain, on 15lpm NRB mask, Morphine drip increased to 8 mg/hr. Family at bedside updated on pt's condition.
--- NOTE | 2020-04-15 18:59 | NUR ---
MS/RN - End of shift summary No significant change in condition seen, on NRB at 15lpm, saturating 97-98%, afebrile, currently on Morphine drip at 8mg/hr infusing well on the JANAK midline, Hanson catheter in place. Patient appears comfortable at this time. Family at bedside updated on plan of care. Will endorse to night RN accordingly.
--- NOTE | 2020-04-15 19:57 | NUR ---
COMFORT CARE RN OPENING NOTES PATIENT RECEIVED RESTING IN BED COMFORTABLY, DNR/DNI, COMFORT MEASURES ONLY; PATIENT NON-COMMUNICATIVE; PATIENT CURRENTLY ON 15LPM VIA NON-REBREATHER MASK; FAMILY AT BED SIDE; MORPHINE DRIP AT 8MG /HR, INFUSING WELL VIA JANAK MIDLINE; VELASCO IN PLACE WITH SNEHAL OUTPUT NOTED; FAMILY MENTIONED WHEN THEY ATTEMPTED TO PLACE PATIENT ON 2LPM VIA NASAL CANNULA, PATIENT STARTED TO PANIC AND HAVE TROUBLE BREATHING; FAMILY REFUSED TO PLACE PATIENT ON NC, MD AWARE; PER FAMILY, THEY WILL CONSIDER TO TRY PLACING HER ON 2LPM VIA NC LATER TONIGHT AFTER SCHEDULED MEDICATIONS ARE ADMINISTERED; SAFETY PRECAUTIONS IMPLEMENTED; WILL CONT TO MONITOR
--- NOTE | 2020-04-15 22:56 | NUR ---
COMFORT CARE RN NOTES PER FAMILY, THEY ARE REQUESTING TYLENOL TO HELP CONTROL PATIENT'S MILD FEVER; SPOKE WITH DR. THOMAS, 650MG TYLENOL Q6HR PRN FOR MILD FEVER/PAIN VIA GTUBE; PER DR. THOMAS, OKAY TO GIVE TYLENOL VIA GTUBE; WILL ADMINISTER PER MD ORDER AND CONT TO MONITOR
[2020-04-15] MEDS ORDERED: ACETAMINOPHEN 650 MG/20.3 ML UDC GT PRN (23:00)
[2020-04-15] MEDS ORDERED: ACETAMINOPHEN 325 MG TABLET MC PRN (23:30)
--- NOTE | 2020-04-16 00:53 | NUR ---
COMFORT CARE RN NOTES PATIENTS FAMILY AT BED SIDE REQUESTED ATIVAN PRIOR TO MORPHINE DRIP CHANGE; ADMINISTERED ATIVAN 0.5ML VIA IV PUSH, PER MD ORDER; WILL CONT TO MONITOR
[2020-04-16] MEDS: POLYVINYL ALCOHOL 15 ML BOTTLE EACHEYE SCH ×4 (04:46→13:40)
[2020-04-16] MEDS: LORAZEPAM INJ 2 MG/ML VIAL IV SCH ×2 (04:47→13:33)
--- NOTE | 2020-04-16 06:32 | NUR ---
COMFORT CARE RN CLOSING NOTES PATIENT RESTING IN BED COMFORTABLY; PATIENT ON 15LPM VIA NON-REBREATHER MASK, HAS SHALLOW RESPIRATIONS BUT TOLERATING NON-REBREATHER WELL; FAMILY AT BED SIDE; MORPHINE DRIP CHANGES @ 0120, INFUSING AT 8MG/HR; CHARGE NURSE AND NURSING AGRONOMY MANAGER AWARE; PER ORDERS, ABLE TO INCREASE 2MG DURING AM SHIFT; WILL INFORM ONCOMING NURSE; ALL NEEDS RENDERED; L UA MIDLINE INTACT AND PATENT; FLUSHING WELL; VELASCO IN PLACE WITH YELLOW OUTPUT OF 300CC THROUGHOUT SHIFT; SAFETY PRECAUTIONS IMPLEMENTED; BED LOCKED IN LOW POSITION; SIDE RAILS X2; WILL ENDORSE YUSUF TO ONCOMING SHIFT
--- NOTE | 2020-04-16 08:00 | NUR ---
COMFORT CARE RN OPEN NOTES PATIENT RESTING IN BED COMFORTABLY; PATIENT ON 15LPM VIA NON-REBREATHER MASK, HAS SHALLOW RESPIRATIONS BUT TOLERATING NON-REBREATHER WELL; FAMILY AT BED SIDE;EMOTIONAL SUPPORT AND ACTIVE LISTENING PROVIDED. PT'S FAMILY HAS MORTUARY OF CHOICE. MORPHINE DRIP INFUSING AT 8MG/HR; PER ORDER, ABLE TO INCREASE 2MG DURING AM SHIFT PRN WITH MAX OF 20 MG/HR; WITH JANAK MIDLINE INTACT AND PATENT; FLUSHING WELL; VELASCO IN PLACE WITH YELLOW URINE OUTPUT; SAFETY PRECAUTIONS IMPLEMENTED; BED LOCKED IN LOW POSITION; SIDE RAILS X2;
[2020-04-16] MEDS ORDERED: MORPHINE SULFATE PF DRIP 250 MG in IV D5W 240 ML IV PRN (12:30)
--- NOTE | 2020-04-16 15:55 | NUR ---
CHECKED ON PT NOTED PALE COLOR AND NON RESPONSIVE. FAMILY AT THE BEDSIDE.CHECKED PULSE WHICH IS UNAPPRECIATED WITH NO RESPIRATIONS NOTED.MOUTH OPEN.ORAL CARE DONE FREQUENTLY. NOTIFIED DR DAVID THOMAS AND PRONOUNCED PT . ALLOWED PRIVACY TO THE FAMILY, SHOWED EMOTIONAL SUPPORT AND EXPRESSED OUR CONDOLENCES. PT WAS COMFORTABLE THROUGHOUT THE SHIFT WITH NO S/S OF PAIN OR DISTRESS.
--- NOTE | 2020-04-16 16:05 | NUR ---
FIRST CALL DONE TO [facility] CASE NO.[id number] AND GAVE INFO. Addendum: 04/16/20 at 2000 by DARÍO GARCIA RN NOTIFIED RN CLINICAL DATA PROGRAMMER,DOMINGO MCRAE AND DR THOMAS OF PT'S PASSING.
--- NOTE | 2020-04-16 16:10 | NUR ---
POSTMORTEM CARE DONE.REMOVED PT'S IV H/L TO LT AC AND VELASCO CATHETER.DC'D PT'S OXYGEN. PLACED PT ON THE BODY BAG WITH THE BODY TAGS TO THE RT TOE AND RT ARM AND BODY BAG.PT HAS NO BELONGINGS.
--- NOTE | 2020-04-16 17:15 | NUR ---
RECEIVED SECOND CALL FROM [facility] AND SPOKE TO DEJUAN AND EXPLAINED THAT THE FAMILY REFUSED TO DO ORGAN DONOR FROM THE PT'S REMAINS. CONFIRMATION NO. [id number].
--- NOTE | 2020-04-16 17:50 | NUR ---
PT'S REMAINS WAS PICKED UP BY YENIFER HIGGINS AND [facility] DIRECTORS . PT'S DAUGHTER,PATRICIA DUVALL WITH HER ,SEAN AT THE BEDSIDE.
== END 2020-04-16 15:55 | disposition expired | DRG 205 ==
LOC: ER 03:37 → ICU 05:05 → TELE 04-12 16:30 → MED 04-13 09:11
PROVIDERS: ADMIT Internal Medicine; ATTEND Internal Medicine
PROC: 05HA33Z Insertion of Infusion Device into Left Brachial Vein, Percutaneous Approach (ICD-10-PCS; principal; 2020-04-10)
DX: T17.890A Other foreign object in other parts of respiratory tract causing asphyxiation, initial encounter (principal); L89.154 Pressure ulcer of sacral region, stage 4; L89.324 Pressure ulcer of left buttock, stage 4; L89.314 Pressure ulcer of right buttock, stage 4; J69.0 Pneumonitis due to inhalation of food and vomit; J96.01 Acute respiratory failure with hypoxia; I21.4 Non-ST elevation (NSTEMI) myocardial infarction; R65.20 Severe sepsis without septic shock; A41.9 Sepsis, unspecified organism; N39.0 Urinary tract infection, site not specified; J98.11 Atelectasis; G93.40 Encephalopathy, unspecified; I82.409 Acute embolism and thrombosis of unspecified deep veins of unspecified lower extremity; Z66 Do not resuscitate; Z51.5 Encounter for palliative care; G20 Parkinson's disease; F02.80 Dementia in other diseases classified elsewhere, unspecified severity, without behavioral disturbance, psychotic disturbance, mood disturbance, and anxiety; E86.0 Dehydration; I25.10 Atherosclerotic heart disease of native coronary artery without angina pectoris; K21.9 Gastro-esophageal reflux disease without esophagitis; R13.10 Dysphagia, unspecified; Z79.82 Long term (current) use of aspirin; Z79.899 Other long term (current) drug therapy; X58.XXXA Exposure to other specified factors, initial encounter; Y92.9 Unspecified place or not applicable; I10 Essential (primary) hypertension; F41.9 Anxiety disorder, unspecified; Y95 Nosocomial condition; Z93.1 Gastrostomy status; Z87.440 Personal history of urinary (tract) infections; Z79.01 Long term (current) use of anticoagulants; L89.156 Pressure-induced deep tissue damage of sacral region; S51.812A Laceration without foreign body of left forearm, initial encounter
CPT/HCPCS: 31720; 36415; 36600; 71045-TC; 80048-TC; 80053-TC; 80076-TC; 80202-TC; 81000-TC; 82803-TC; 83605-TC; 83735-TC; 83880; 84100-TC; 84484-TC; 85025-TC; 85730-TC; 87040-TC; 87081-TC; 87086-TC; 93970-TC; 94668-TC; 94760-TC; 94762-TC; 94799-TC; A4216; A4217; A4624; A6253; A6403; G0378; J1650; J2060; J2185; J2270; J2274; J2543; J3370; J3490; J7030; J7040; J7050; J7060; U0003-CS